=== PATIENT | female | born 1955 | race Caucasian/White ===

== ENCOUNTER → 2016-06-25 | Outpatient (CLI) | payer BC, OTHER | LOC: HYPER 07:05 | DX: I83.811 Varicose veins of right lower extremity with pain (principal); I89.0 Lymphedema, not elsewhere classified; I10 Essential (primary) hypertension; L71.9 Rosacea, unspecified; E78.5 Hyperlipidemia, unspecified ==

== ENCOUNTER → 2016-08-21 | Outpatient (CLI) | payer BC, OTHER | LOC: HYPER 07-16 14:23 | DX: I89.0 Lymphedema, not elsewhere classified (principal); I10 Essential (primary) hypertension; E78.5 Hyperlipidemia, unspecified; I83.819 Varicose veins of unspecified lower extremity with pain; L71.9 Rosacea, unspecified; Z90.710 Acquired absence of both cervix and uterus; Z72.89 Other problems related to lifestyle ==

== ENCOUNTER → 2019-11-09 | Outpatient (CLI) | payer OTHER | LOC: RAD 13:35 | DX: Z12.31 Encounter for screening mammogram for malignant neoplasm of breast (principal) ==